=== PATIENT | female | born 1995 | race African-American/Black ===

== ENCOUNTER 2018-02-27 07:27 | Emergency (ER) | payer MEDICAID ==
[~2018-02-27] VITALS: Ht 154.9 cm; Wt 62.1 kg
[2018-02-27 07:45] VITALS: BP 147/75
== END 2018-02-27 08:07 | disposition home or self-care (01) ==
LOC: ER 07:27
DX: J03.90 Acute tonsillitis, unspecified (principal); J06.9 Acute upper respiratory infection, unspecified; N89.8 Other specified noninflammatory disorders of vagina
CPT/HCPCS: 81002

== ENCOUNTER 2018-02-28 11:48 | Emergency (ER) | payer MEDICAID ==
[~2018-02-28] VITALS: Ht 154.9 cm; Wt 62.1 kg
[2018-02-28 12:10] VITALS: BP 128/79
== END 2018-02-28 12:47 | disposition home or self-care (01) ==
LOC: ER 11:48
DX: K52.9 Noninfective gastroenteritis and colitis, unspecified (principal)

== ENCOUNTER 2018-04-10 10:27 | Emergency (ER) | payer MEDICAID ==
[~2018-04-10] VITALS: Ht 154.9 cm; Wt 62.1 kg
[2018-04-10 10:48] VITALS: BP 126/89
[2018-04-10] MEDS ORDERED: PANTOPRAZOLE 40 MG/10 ML VIAL IV STA (10:48)
[2018-04-10] MEDS ORDERED: SODIUM CHLORIDE 0.9% 1,000 ML IVB ONE (10:48)
[2018-04-10] MEDS ORDERED: ONDANSETRON HCL 4 MG/2 ML VIAL IV ONE (11:00)
[2018-04-10] MEDS ORDERED: MORPHINE SULFATE 4 MG/ML SYR/VIAL IV ONE (11:00)
[2018-04-10 11:11] LABS: Urine Bacteria FEW /hpf (None Seen); Urine Blood Negative /uL (Negative); Urine Specific Gravity 1.019 (1.001-1.035); Urine WBC 1 /hpf (0 - 5)
[2018-04-10 11:52] LABS: Basophils # (auto) 0 uL; Basophils % (auto) 0.2 % (0.0-2.0); Eosinophils # (auto) 0 uL; Eosinophils % (auto) 0.2 % (0.0-7.0); Hematocrit 41.3 % (36.0-46.0); Hemoglobin 13.3 g/dL (12.2-16.2); Lymphocytes # (auto) 1.2 uL; Lymphocytes % (auto) 9.9 % (10.0-50.0); Mean Corpuscular Hemoglobin 30.4 pg (28.0-32.0); Mean Corpuscular Hgb Conc. 32.2 g/dL (32.0-36.0); Mean Corpuscular Volume 94.3 fL (80.0-100.0); Monocytes # (auto) 0.6 uL; Monocytes % (auto) 4.7 % (0.0-12.0); Neutrophils # (auto) 10.6 uL; Platelet Count (auto) 352 10^3/uL (140-450); Red Blood Cells 4.38 10^6/uL (4.0-5.20); Red Cell Distribution Width 12.9 % (11.8-14.3); White Blood Cell 12.5 10^3/uL (4.4-10.8)
[2018-04-10 11:59] LABS: Albumin 3.8 g/dL (3.4-5.0); Anion Gap 5 (5-15); Aspartate Aminotransferase 23 U/L (15-37); Blood Urea Nitrogen 13 mg/dL (7-18); Calcium 8.4 mg/dL (8.5-10.1); Carbon Dioxide 26 mmol/L (21-32); Chloride 105 mmol/L (98-107); Glucose 83 mg/dL (74-106); Lipase 73 U/L (73-393); Potassium 3.8 mmol/L (3.5-5.1); Sodium 136 mmol/L (136-145)
[2018-04-10 12:02] LABS: Alanine Aminotransferase 19 U/L (13-56); Alkaline Phosphatase 45 U/L (45-117); BUN/Creatinine Ratio 16.5; Bilirubin, Total 0.6 mg/dL (0.2-1.0); GFR African American > 60 mL/min; GFR Non-African American > 60 mL/min; Total Protein 8.1 g/dL (6.4-8.2)
== END 2018-04-10 12:46 | disposition home or self-care (01) ==
LOC: ER 10:27
DX: K29.00 Acute gastritis without bleeding (principal)
CPT/HCPCS: 36415; 76705; 80053; 81001; 81025; 83690; 85025; 94761; 99284; J7030; C9113; J2405

== ENCOUNTER 2018-06-11 06:51 | Emergency (ER) | payer MEDICAID ==
[~2018-06-11] VITALS: Ht 154.9 cm; Wt 58.5 kg
[2018-06-11 07:33] VITALS: BP 112/71
== END 2018-06-11 08:02 | disposition home or self-care (01) ==
LOC: ER 06:51
DX: L05.91 Pilonidal cyst without abscess (principal)